=== PATIENT | male | born 1990 | race Caucasian/White ===

== ENCOUNTER 2019-05-26 06:28 | Emergency (ER) | payer BC, OTHER ==
[~2019-05-26] VITALS: Wt 93.8 kg
[~2019-05-26 06:28] MED LIST: FAMO-96 PO
[2019-05-26 06:32] VITALS: BP 157/81; PULSE 67; RESP 18
[2019-05-26] MEDS ORDERED: SOD CHLORIDE 0.9% 100 ML ONE (07:41)
[2019-05-26] MEDS ORDERED: IODIXANOL LOCM 100 ML BTL ONE (07:41)
== END 2019-05-26 08:35 | disposition home or self-care (01) ==
LOC: FTE 06:28
DX: J02.9 Acute pharyngitis, unspecified (principal)
CPT/HCPCS: 70491; 80053; 81001; 83690; 85025; 99284; Q9967